=== PATIENT | male | born 1975 | race Caucasian/White ===

== ENCOUNTER → 2020-02-09 17:06 | Outpatient (BNVA) | payer OTHER, SELFPAY | PROVIDERS: Family Provider Nurse Practitioner Family; PCP Nurse Practitioner Family; Visit Provider Nurse Practitioner | DX: I10 Essential (primary) hypertension (principal); Z98.890 Other specified postprocedural states; H02.826 Cysts of left eye, unspecified eyelid | CPT/HCPCS: 80053; 80061; 85025 ==

== ENCOUNTER 2020-03-22 07:17 | Emergency (ER) | payer OTHER, SELFPAY ==
--- NOTE | 2020-03-22 07:19 | ECG_ITS ---
[facility] Test Date: 2020-03-22 Pat Name: Allan Faust Department: Room: Gender: Male Raftsman: : 1975 Requested By: Gladys Quiñonez Order Number: [id number] Olga MD: Shira Caicedo M.D. Measurements Intervals Hasty Rate: 62 P: 32 OK: 139 QRS: -5 QRSD: 101 T: 2 QT: 421 QTc: 430 Interpretive Statements SINUS RHYTHM MODERATE VOLTAGE CRITERIA FOR LVH, CONSIDER NORMAL VARIANT No previous ECG available for comparison Electronically Signed On 03-23-2020 17:11:41 CDT by Shira Caicedo M.D. [email or web address] hardin memorial [email or web address].[employer]/store/NU/[id number] f
--- NOTE | 2020-03-22 07:19 | XR_ITS ---
WS: [id number] PORTABLE CHEST HISTORY: chest pain COMPARISON: 09/30/2018 Decreased lung volumes. Areas of atelectasis in the RIGHT lower and RIGHT upper lung. No pleural effu richi or pneumothorax. Cardiac size: Normal. Mediastinum/Aorta: Normal mediastinum. No osseous abnormality seen. XR/XR chest 1V portable [id number] IMPRESSION: Poor inspiration with mild atelectasis in the RIGHT upper and RIGHT lower lungs .
--- NOTE | 2020-03-22 07:21 | W.ED.CHESTPA ---
Documented by User: RHONDA Oconnell 03/22/20 10:19 HPI - Chest Pain General: Chief Complaint: Chest Pain Stated Complaint: CP/SOB Time Seen by Provider: 03/22/20 07:21 Source: patient Mode of arrival: ambulatory Limitations: no limitations History of Present Illness: HPI narrative: Patient is a nice 44-year-old male who presents to ED today with a complaint of chest pain that began around 4 AM this morning. Patient tells me he had gotten up and had taken his morning medications and started to eat breakfast and states on one of the bites of food, when he swallowed, he immediately developed substernal chest pain that brought me to my knees . Patient states he then had a few episodes of vomiting. He states since that time he is continued to have pain. He has had to drink water but again states when he swallows he has pain in his chest. Patient has no known cardiac disease. He thinks he might have had an echocardiogram last year but is not sure. PMH is significant for hypertension and obesity. Patient states that his pain is currently rated at a 7 out of 10 and states he feels restricted anytime he tries to take a deep breath. MD complaint: chest pain Onset (ago): hour(s) Timing of current episode: constant Prior episodes: No Onset: other (during eating) Pain location: substernal Relieving factors: nothing Exacerbating factors: other (swallowing, deep inhalation) Associated symptoms: Deny abdominal pain, dyspnea, fever(s), nausea, palpitations, syncope or vomiting Review of Systems Const: Denies: fever(s) or chills Eyes: Denies: change in vision or blurry vision ENMT: Reports: odynophagia (pain in chest with swallowing) Card: Reports: chest pain; Denies: palpitations, irregular heart rhythm, edema, swelling of feet/ankles, lightheadedness, syncope, pre-syncope, dyspnea on exertion or orthopnea Resp: Denies: dyspnea, productive cough, non-productive cough, pain on inspiration, change in phlegm color, hemoptysis or chest congestion GI: Denies: abdominal pain, nausea, vomiting, heartburn or diarrhea : Denies: difficulty urinating or dysuria Musc: Denies: neck pain, back pain or joint pain Skin/Breast: Denies: rash Neuro: Denies: headache(s), numbness in extremities, weakness in extremities or sensory changes PFSH ED PFSH: Medical History (Updated 03/30/20 @ 00:00 by ) Hypertension Left ventricular hypertrophy Obesity Obstructive sleep apnea with CPAP Surgical History (Updated 02/09/20 @ 17:07 by MELANIE Danielle) History of foot surgery 1986 right foot Family History Father Heart disease Social History Smoking and tobacco status: current every day smoker smokeless tobacco Smokeless tobacco user: snuff Second hand smoke exposure: No Smoking risk assessment/counseling performed?: No Alcohol intake: current Alcohol intake frequency: other Desire information about substance/drug rehabilitation?: No Counseling given: No Adopted: No Caregiver/support person: No Lives independently: Yes Household members: spouse Housing: House Marital status: Number of children: 3 Number of grandchildren: 0 service: Yes Current occupational status: employed History of recent travel: No Physical Exam Const: COMMON NORMALS: no acute distress, patient oriented x3, no limitations and alert NUTRITIONAL APPEARANCE: obese HENMT: COMMON NORMALS: normocephalic and atraumatic HEAD & SCALP: normocephalic and atraumatic Neck/C-Spine: GENERAL: Yes normal visual inspection Chest: COMMONS NORMALS: normal inspection of the chest and normal palpation of entire chest wall Resp: COMMON NORMALS: normal respiratory effort and clear to auscultation bilaterally AUSCULTATION: clear to auscultation bilaterally Cardio: COMMON NORMALS: regular rate and regular rhythm RATE: regular rate RHYTHM: regular rhythm GI: COMMON NORMALS: Normal to inspection, nondistended, normoactive bowel sounds present, Soft to palpation, non-tender, No hepatosplenomegaly present and no masses PALPATION: Yes Soft to palpation and Yes No hepatosplenomegaly present Back/Pelvis: COMMON NORMALS: thoracic and lumbar spine normal to inspection, no thoracic nor lumbar tenderness and thoraco-lumbar ROM normal Neuro: COMMON NORMALS: patient oriented x3 SENSORIUM/ORIENTATION: Yes alert Skin: COMMON NORMALS: no rashes or lesions noted GENERAL SKIN EXAM: no rashes or lesions noted Course Vital Signs: Vital signs: Vital Signs Temperature 98.4 F 03/22/20 07:22 Pulse Rate 61 03/22/20 10:17 Respiratory Rate 18 03/22/20 10:17 Blood Pressure 156/111 03/22/20 10:17 Pulse Oximetry 98 03/22/20 10:17 MDM - Chest Pain MDM Narrative: Medical decision making narrative: Patient is a nice gentleman that presented to ED today with a complaint of substernal chest pain that began after eating/swallowing. Patient had a negative initial troponin with a negative delta troponin. Initial and repeat EKGs without ischemic changes. His CXR shows no acute abnormality/no evidence for esophageal perforation. Remainder of labs and work-up here are normal. Patient was initially treated with nitroglycerin which did not produce any alleviation of patient's symptoms. He was shortly after treated with a GI cocktail which almost immediately decreased patient's pain substantially. Recommend patient follow-up with primary care in the next 3 to 5 days for reevaluation. Lab Data: Labs: Lab Results 03/22/20 03/22/20 03/22/20 Range/Units 07:29 07:29 07:29 WBC 13.1 H (4.0-10.0) 10^3/ uL RBC 5.18 (4.1-5.3) 10^6/u L Hgb 15.0 (11.7-16.6) g/dL Hct 45.6 (42.0-52.0) % MCV 88.0 (80-94) fL MCH 29.0 (28.0-34.0) pg MCHC 32.9 (30.0-36.0) g/dL RDW 12.5 (12.1-15.1) % Plt Count 241 (130-400) 10^3/c mm MPV 9.7 (7.4-10.4) fL Neut % (Auto) 80.5 % Lymph % (Auto) 11.1 % [place] % (Auto) 5.3 % Eos % (Auto) 2.3 % Baso % (Auto) 0.4 % Neut # (Auto) 10.6 H (1.8-7.7) 10^3/u L Lymph # (Auto) 1.5 (0.8-4.8) 10^3/u L [place] # (Auto) 0.7 (0.2-0.9) 10^3/u L Eos # (Auto) 0.3 (0.0-0.8) 10^3/u L Baso # (Auto) 0.1 (0.0-0.1) 10^3/u L Nucleated RBC % (a uto) 0 % Nucleated RBCs # 0.0 /100WBC Sodium 138 (136-145) mmol/L Potassium 4.3 (3.5-5.1) mmol/L Chloride 102 (98-107) mmol/L Carbon Dioxide 27 (22-29) mmol/L Anion Gap 13.3 (5-19) BUN 10 (6-20) mg/dL Creatinine 1.1 (0.7-1.2) mg/dL GFR Calculation 72.1 L (90-130) mL/min Glucose 112 (65-115) mg/dL Calculated Osmolal ity 283 L (285-295) mOsm/k g Calcium 9.7 (8.5-10.5) mg/dL Total Bilirubin 0.4 (0.15-1.2) mg/dL AST 25 (0-40) U/L ALT 26 (0-41) U/L Alkaline Phosphata se 58 (40-130) IU/L Troponin T Baselin e 11 (0-15) ng/L Troponin T [address] [place] (0-15) ng/L Delta Troponin T (0-10) ABS# Total Protein 7.2 (6.6-8.7) g/dL Albumin 4.5 (3.5-5.2) g/dL Globulin 2.7 (1.3-4.6) g/dL 03/22/20 Range/Units 09:30 WBC (4.0-10.0) 10^3/ uL RBC (4.1-5.3) 10^6/u L Hgb (11.7-16.6) g/dL Hct (42.0-52.0) % MCV (80-94) fL MCH (28.0-34.0) pg MCHC (30.0-36.0) g/dL RDW (12.1-15.1) % Plt Count (130-400) 10^3/c mm MPV (7.4-10.4) fL Neut % (Auto) % Lymph % (Auto) % [place] % (Auto) % Eos % (Auto) % Baso % (Auto) % Neut # (Auto) (1.8-7.7) 10^3/u L Lymph # (Auto) (0.8-4.8) 10^3/u L [place] # (Auto) (0.2-0.9) 10^3/u L Eos # (Auto) (0.0-0.8) 10^3/u L Baso # (Auto) (0.0-0.1) 10^3/u L Nucleated RBC % (a uto) % Nucleated RBCs # /100WBC Sodium (136-145) mmol/L Potassium (3.5-5.1) mmol/L Chloride (98-107) mmol/L Carbon Dioxide (22-29) mmol/L Anion Gap (5-19) BUN (6-20) mg/dL Creatinine (0.7-1.2) mg/dL GFR Calculation (90-130) mL/min Glucose (65-115) mg/dL Calculated Osmolal ity (285-295) mOsm/k g Calcium (8.5-10.5) mg/dL Total Bilirubin (0.15-1.2) mg/dL AST (0-40) U/L ALT (0-41) U/L Alkaline Phosphata se (40-130) IU/L Troponin T Baselin e (0-15) ng/L Troponin T [address] [place] 8.00 (0-15) ng/L Delta Troponin T -3.00 L (0-10) ABS# Total Protein (6.6-8.7) g/dL Albumin (3.5-5.2) g/dL Globulin (1.3-4.6) g/dL Imaging Data^: CXR: Radiologist's impression: [address] [address] XRay Report Signed Patient: Allan Faust Unit #: [id number] : 1975 Age/Sex: 44 / M ADM Date: 03/22/20 Loc: ER Room/Bed: Attending Dr: Ordering Provider/Ordering MD: Gladys Quiñonez Date of Service: 03/22/20 Procedure(s): XR chest 1V portable [id number] Accession Number(s): [id number] Report Number: [id number] WS: [id number] PORTABLE CHEST HISTORY: chest pain COMPARISON: 09/30/2018 Decreased lung volumes. Areas of atelectasis in the RIGHT lower and RIGHT upper lung. No pleural effusion or pneumothorax. Cardiac size: Normal. Mediastinum/Aorta: Normal mediastinum. No osseous abnormality seen. XR/XR chest 1V portable [id number] IMPRESSION: Poor inspiration with mild atelectasis in the RIGHT upper and RIGHT lower lungs. Dictated By: Rubina Brewer DO Signed By: Rubina Brewer DO Signed Date/Time: 03/22/20806 DD/ 4 Discharge Plan Discharge Patient Disposition: Home, Self-Care Clinical Impression: Pain of esophagus Condition: Stable Prescriptions: New Lidocaine Viscous 2 % solution 10 ml PO Q6H Qty: 100 RF: 0 No Action hydrochlorothiazide 50 mg tablet 50 mg PO DAILY Qty: 90 RF: 2 valsartan 320 mg tablet 320 mg PO DAILY Qty: 90 RF: 2 amlodipine 5 mg tablet 5 mg PO DAILY Qty: 90 RF: 2 potassium gluconate 595 mg (99 mg) Tablet 1,190 mg PO DAILY RF: 0 Discharge Orders: Discharge Order (Routine); Ordered 03/22/20 Ordered By: Gladys Quiñonez Referrals: Shauna Cobian FNP-C [Primary Care Provider] - Activity Restrictions/Additional Instructions: May also take Maalox along with the lidocaine to help with discomfort. Please follow-up with primary care this week or early next week for reevaluation. Return to the emergency department for worsening chest pain, difficulty breathing, worsening painful swallowing, pain up into your neck, or any other concerns you may have. Discharge Date/Time: 03/22/20 10:17 Coding Level of Care Code ED Business Control Specialist for Chg Fwd Exam Comprehensive Documented by User: Mihai Rodriguez DO 04/01/20 06:09 HPI - Chest Pain General: Chief Complaint: Chest Pain Stated Complaint: CP/SOB Time Seen by Provider: 03/22/20 07:21 [facility] ED PFSH: Medical History (Updated 03/30/20 @ 00:00 by ) Hypertension Left ventricular hypertrophy Obesity Obstructive sleep apnea with CPAP Surgical History (Updated 02/09/20 @ 17:07 by MELANIE Danielle) History of foot surgery 1986 right foot Family History Father Heart disease Social History Smoking and tobacco status: current every day smoker smokeless tobacco Smokeless tobacco user: snuff Second hand smoke exposure: No Smoking risk assessment/counseling performed?: No Alcohol intake: current Alcohol intake frequency: other Desire information about substance/drug rehabilitation?: No Counseling given: No Adopted: No Caregiver/support person: No Lives independently: Yes Household members: spouse Housing: House Marital status: Number of children: 3 Number of grandchildren: 0 service: Yes Current occupational status: employed History of recent travel: No Course Vital Signs: Vital signs: Vital Signs Temperature 98.4 F 03/22/20 07:22 Pulse Rate 61 03/22/20 10:17 Respiratory Rate 18 03/22/20 10:17 Blood Pressure 156/111 03/22/20 10:17 Pulse Oximetry 98 03/22/20 10:17 MDM - Chest Pain MDM Narrative: Medical decision making narrative: Reviewed case with midlevel agree with assessment and plan patient to return to the ER if has any further problems. Otherwise follow-up with primary care doctor. Lab Data: Labs: Lab Results 03/22/20 03/22/20 03/22/20 Range/Units 07:29 07:29 07:29 WBC 13.1 H (4.0-10.0) 10^3/ uL RBC 5.18 (4.1-5.3) 10^6/u L Hgb 15.0 (11.7-16.6) g/dL Hct 45.6 (42.0-52.0) % MCV 88.0 (80-94) fL MCH 29.0 (28.0-34.0) pg MCHC 32.9 (30.0-36.0) g/dL RDW 12.5 (12.1-15.1) % Plt Count 241 (130-400) 10^3/c mm MPV 9.7 (7.4-10.4) fL Neut % (Auto) 80.5 % Lymph % (Auto) 11.1 % [place] % (Auto) 5.3 % Eos % (Auto) 2.3 % Baso % (Auto) 0.4 % Neut # (Auto) 10.6 H (1.8-7.7) 10^3/u L Lymph # (Auto) 1.5 (0.8-4.8) 10^3/u L [place] # (Auto) 0.7 (0.2-0.9) 10^3/u L Eos # (Auto) 0.3 (0.0-0.8) 10^3/u L Baso # (Auto) 0.1 (0.0-0.1) 10^3/u L Nucleated RBC % (a uto) 0 % Nucleated RBCs # 0.0 /100WBC Sodium 138 (136-145) mmol/L Potassium 4.3 (3.5-5.1) mmol/L Chloride 102 (98-107) mmol/L Carbon Dioxide 27 (22-29) mmol/L Anion Gap 13.3 (5-19) BUN 10 (6-20) mg/dL Creatinine 1.1 (0.7-1.2) mg/dL GFR Calculation 72.1 L (90-130) mL/min Glucose 112 (65-115) mg/dL Calculated Osmolal ity 283 L (285-295) mOsm/k g Calcium 9.7 (8.5-10.5) mg/dL Total Bilirubin 0.4 (0.15-1.2) mg/dL AST 25 (0-40) U/L ALT 26 (0-41) U/L Alkaline Phosphata se 58 (40-130) IU/L Troponin T Baselin e 11 (0-15) ng/L Troponin T [address] [place] (0-15) ng/L Delta Troponin T (0-10) ABS# Total Protein 7.2 (6.6-8.7) g/dL Albumin 4.5 (3.5-5.2) g/dL Globulin 2.7 (1.3-4.6) g/dL 03/22/20 Range/Units 09:30 WBC (4.0-10.0) 10^3/ uL RBC (4.1-5.3) 10^6/u L Hgb (11.7-16.6) g/dL Hct (42.0-52.0) % MCV (80-94) fL MCH (28.0-34.0) pg MCHC (30.0-36.0) g/dL RDW (12.1-15.1) % Plt Count (130-400) 10^3/c mm MPV (7.4-10.4) fL Neut % (Auto) % Lymph % (Auto) % [place] % (Auto) % Eos % (Auto) % Baso % (Auto) % Neut # (Auto) (1.8-7.7) 10^3/u L Lymph # (Auto) (0.8-4.8) 10^3/u L [place] # (Auto) (0.2-0.9) 10^3/u L Eos # (Auto) (0.0-0.8) 10^3/u L Baso # (Auto) (0.0-0.1) 10^3/u L Nucleated RBC % (a uto) % Nucleated RBCs # /100WBC Sodium (136-145) mmol/L Potassium (3.5-5.1) mmol/L Chloride (98-107) mmol/L Carbon Dioxide (22-29) mmol/L Anion Gap (5-19) BUN (6-20) mg/dL Creatinine (0.7-1.2) mg/dL GFR Calculation (90-130) mL/min Glucose (65-115) mg/dL Calculated Osmolal ity (285-295) mOsm/k g Calcium (8.5-10.5) mg/dL Total Bilirubin (0.15-1.2) mg/dL AST (0-40) U/L ALT (0-41) U/L Alkaline Phosphata se (40-130) IU/L Troponin T Baselin e (0-15) ng/L Troponin T [address] [place] 8.00 (0-15) ng/L Delta Troponin T -3.00 L (0-10) ABS# Total Protein (6.6-8.7) g/dL Albumin (3.5-5.2) g/dL Globulin (1.3-4.6) g/dL Discharge Plan Discharge Patient Disposition: Home, Self-Care Clinical Impression: Pain of esophagus Condition: Stable Prescriptions: New Lidocaine Viscous 2 % solution 10 ml PO Q6H Qty: 100 RF: 0 No Action hydrochlorothiazide 50 mg tablet 50 mg PO DAILY Qty: 90 RF: 2 valsartan 320 mg tablet 320 mg PO DAILY Qty: 90 RF: 2 amlodipine 5 mg tablet 5 mg PO DAILY Qty: 90 RF: 2 potassium gluconate 595 mg (99 mg) Tablet 1,190 mg PO DAILY RF: 0 Discharge Orders: Discharge Order (Routine); Ordered 03/22/20 Ordered By: Gladys Quiñonez Referrals: Shauna Cobian FNP-C [Primary Care Provider] - Activity Restrictions/Additional Instructions: May also take Maalox along with the lidocaine to help with discomfort. Please follow-up with primary care this week or early next week for reevaluation. Return to the emergency department for worsening chest pain, difficulty breathing, worsening painful swallowing, pain up into your neck, or any other concerns you may have. Discharge Date/Time: 03/22/20 10:17 Coding Level of Care Code ED Business Control Specialist for Fabiola Fwrichard Exam Comprehensive
[2020-03-22 07:22] VITALS: BP 180/119; PULSE 63; RESP 18; TEMP 36.9; O2SAT 97; BMI 42.0
[2020-03-22 07:29] VITALS: BP 167/108; PULSE 65; RESP 23; O2SAT 96
[2020-03-22 07:36] LABS: Basophils # 0.1 10^3/uL (0.0-0.1); Basophils % 0.4 %; Eosinophils # 0.3 10^3/uL (0.0-0.8); Eosinophils % 2.3 %; Hematocrit 45.6 % (42.0-52.0); Lymphocytes # 1.5 10^3/uL (0.8-4.8); Lymphocytes % 11.1 %; Mean Corpuscular HGB Conc 32.9 g/dL (30.0-36.0); Mean Platelet Volume 9.7 fL (7.4-10.4); Monocytes # 0.7 10^3/uL (0.2-0.9); Monocytes % 5.3 %; Neutrophils # 10.6 10^3/uL (1.8-7.7); Neutrophils % 80.5 %; Nucleated Red Blood Cells % 0 %; Platelet Count 241 10^3/cmm (130-400); Red Blood Count 5.18 10^6/uL (4.1-5.3); Red Cell Distribution Width 12.5 % (12.1-15.1); White Blood Count 13.1 10^3/uL (4.0-10.0)
[2020-03-22 07:49] LABS: Troponin(5th) Baseline 11 ng/L (0-15)
[2020-03-22 08:04] LABS: Alanine Aminotransferase 26 U/L (0-41); Albumin Level 4.5 g/dL (3.5-5.2); Alkaline Phosphatase 58 IU/L (40-130); Anion Gap 13.3 (5-19); Blood Urea Nitrogen 10 mg/dL (6-20); Calcium 9.7 mg/dL (8.5-10.5); Carbon Dioxide 27 mmol/L (22-29); Chloride 102 mmol/L (98-107); Globulin 2.7 g/dL (1.3-4.6); Glomerular Filtration Rate 72.1 mL/min (90-130); Glucose 112 mg/dL (65-115); Osmolality Calculated 283 mOsm/kg (285-295); Potassium 4.3 mmol/L (3.5-5.1); Sodium 138 mmol/L (136-145); Total Bilirubin 0.4 mg/dL (0.15-1.2); Total Protein 7.2 g/dL (6.6-8.7)
[2020-03-22] MEDS: nitroglycerin 0.4 mg sublingual Tablet SUBLINGUAL ×2 (08:25→08:42)
[2020-03-22 08:27] VITALS: BP 150/100; PULSE 53; RESP 19; O2SAT 97
[2020-03-22 08:42] VITALS: BP 130/79; PULSE 59; RESP 19; O2SAT 96
[2020-03-22 08:45] LABS: Aspartate Amino Transferase 25 U/L (0-40)
[2020-03-22] MEDS: lidocaine 2% viscous 15 ML, aluminum-mag hydrox-simethicon 30 ML, sucralfate oral liq 1 GM PO (08:54)
--- NOTE | 2020-03-22 08:57 | PC.NURSE ---
Patient drank GI Cocktail and reports pain with swallowing.
[2020-03-22 09:14] VITALS: BP 139/77; PULSE 53; RESP 17; O2SAT 98
--- NOTE | 2020-03-22 09:14 | PC.NURSE ---
Patient reports that his pain is much better. Pain is a 4/10 and a dull ache.
--- NOTE | 2020-03-22 09:19 | ECG_ITS ---
[facility] ED Test Date: 2020-03-22 Pat Name: Allan Faust Department: Room: Gender: Male Product Coordinator: : 1975 Requested By: Gladys Quiñonez Order Number: [id number] Espinoza MD: Shira Caicedo M.D. Measurements Intervals [place] Rate: 51 P: 57 PA: 153 QRS: 16 QRSD: 101 T: 22 QT: 436 QTc: 403 Interpretive Statements SINUS BRADYCARDIA Compared to ECG 03/22/2020 07:33:45 Sinus rhythm no longer present Electronically Signed On 03-23-2020 17:24:18 CDT by Shira Caicedo M.D. [id number] f
[2020-03-22 10:17] VITALS: BP 156/111; PULSE 61; RESP 18; O2SAT 98
== END 2020-03-22 10:17 | disposition home or self-care (01) ==
PROVIDERS: Emergency Provider Physician Assistant; Family Provider Nurse Practitioner Family; PCP Nurse Practitioner Family
DX: R07.0 Pain in throat (principal); I10 Essential (primary) hypertension; F17.210 Nicotine dependence, cigarettes, uncomplicated
CPT/HCPCS: 12345; 36415; 71045; 80053; 84484; 85025; 93005; 99283

== ENCOUNTER → 2021-05-09 08:15 | Outpatient (BNVA) | payer OTHER, SELFPAY | PROVIDERS: Family Provider Nurse Practitioner Family; PCP Nurse Practitioner Family; Visit Provider Internal Medicine Cardiovascular Disease | DX: E66.9 Obesity, unspecified (principal); G47.33 Obstructive sleep apnea (adult) (pediatric); I10 Essential (primary) hypertension | CPT/HCPCS: 80053; 80061; 85025 ==

== ENCOUNTER 2022-03-09 10:40 | Emergency (ER) | payer OTHER, SELFPAY ==
[2022-03-09 10:46] VITALS: BP 172/106; PULSE 83; RESP 15; TEMP 36.4; O2SAT 94; BMI 42.0
--- NOTE | 2022-03-09 10:55 | XRR_ITS ---
PROCEDURE INFORMATION: Exam: XR Right Hand Exam date and time: 03/09/2022 11:05 AM Age: 46 years old Clinical indication: Injury or trauma; Other: Cut on saw; Laceration; Right; Little finger; Additional info: Hand injury TECHNIQUE: Imaging protocol: Radiologic exam of the Right hand. Views: 3 or more views. COMPARISON: No relevant prior studies available. FINDINGS: Bones/joints: Partial amputation at the distal 5th middle phalanx and base of the distal phalanx with displacement of the distal phalanx. Soft tissues: Wound/laceration at the distal 5th digit. XR/XR hand RT min 3V* [id number] IMPRESSION: Partial amputation of the distal 5th middle phalanx and base of the distal phalanx with displacement of the distal phalanx.
--- NOTE | 2022-03-09 11:03 | W.ED.GENADLT ---
HPI - General Adult General: Chief complaint: Extremity Injury, Upper Stated complaint: cut finger off Time Seen by Provider: 03/09/22 10:55 History of Present Illness: Patient is a 46-year-old male up-to-date with his tetanus with history of hypertension presents emergency room for evaluation of acute finger injury with saw. Patient tells me that he was operating a saw about 10 minutes ago when he suddenly cut the tip of his ring and his pinky finger on the right side. Patient noticed minimal bleeding. Patient denies any other injuries. No nausea/vomiting, fever/chill, chest pain, shortness of breath, abdominal pain, dysuria/hematuria/polyuria, diarrhea/melena/hematochezia. Patient tells me he has 3 tetanus vaccines in his lifetime. Patient has no anticoagulation use. Onset: 10 minutes ago Duration:ongoing Location:home Severity: moderate/severe Associated symptoms: Deny chest pain, dyspnea, nausea, palpitations or vomiting Review of Systems Const: Denies: fever(s) or chills Eyes: Denies: change in vision ENMT: Denies: mouth pain Card: Denies: chest pain or palpitations Resp: Denies: dyspnea or non-productive cough GI: Denies: abdominal pain, nausea, vomiting or diarrhea : Denies: dysuria Musc: Reports: extremity pain (+R near amputation of the pinky finger and laceration over the ring finger) Skin/Breast: Reports: new lesions (+near amputation of the pinky finger) Neuro: Denies: weakness in extremities Psych: Reports: other (Normal mood) Jaime/Lymph: Denies: easy bruising PFSH ED PFSH: Medical History Hypertension Left ventricular hypertrophy Obesity Obstructive sleep apnea with CPAP Surgical History History of foot surgery 1986 right foot Family History Father Heart disease Social History Smoking and tobacco status: never smoked Second hand smoke exposure: No Smoking risk assessment/counseling performed?: No Alcohol intake: current Alcohol intake frequency: other Desire information about substance/drug rehabilitation?: No Counseling given: No Adopted: No Caregiver/support person: No Lives independently: Yes Household members: spouse Housing: House Marital status: Number of children: 3 Number of grandchildren: 0 service: Yes branch: [employer] Current occupational status: employed History of recent travel: No Physical Exam Const: COMMON NORMALS: alert HENMT: COMMON NORMALS: atraumatic HEAD & SCALP: atraumatic MOUTH: moist mucous membranes not abnormal Eye: COMMON NORMALS: EOMs intact bilaterally and conjunctivae normal CONJUNCTIVA: Yes conjunctivae normal Neck/C-Spine: COMMON NORMALS: full ROM and supple Resp: COMMON NORMALS: normal respiratory effort and clear to auscultation bilaterally AUSCULTATION: clear to auscultation bilaterally Cardio: COMMON NORMALS: regular rate RATE: regular rate GI: COMMON NORMALS: Soft to palpation and non-tender PALPATION: Yes Soft to palpation Extremity: COMMON NORMALS: full ROM NARRATIVE EXTREMITY EXAM: +R near amputation of the 5th digit +R distal tip laceration of the 4th digit Neuro: SENSORIUM/ORIENTATION: Yes alert MOTOR EXAM: No Abnormal motor strength present and Other motor observations present (no focal motor deficits) Psych: COMMON NORMALS: speech normal SPEECH: Yes normal speech MOOD & AFFECT: Yes euthymic mood Skin: NARRATIVE SKIN EXAM: +R fifth digit DIP laceration with near amputation of the R finger, patient intact sensation distal to the affected digit +R fourht digit laceration at the finger tip without nailbed involvement measuring 0.5cm Course Vital Signs: Vital signs: Vital Signs Temperature 97.6 F 03/09/22 10:46 Pulse Rate 63 03/09/22 11:32 Respiratory Rate 18 03/09/22 11:32 Blood Pressure 161/108 03/09/22 11:32 Pulse Oximetry 94 03/09/22 10:46 MDM - General Adult Medical Decision Making 38-year-old male who was operating a saw earlier presenting to the emergency room with a laceration of the right fourth digit near amputation of the right fifth finger at the DIP joint. Neurovascular exam is intact on the fifth digit distally. X-rays show bony injuries. Case was discussed with Dr. Lea who recommended transferring to outside facility for hand surgery. Patient is up-to-date with Tdap. Patient received cefazolin. Case was discussed with Dr. Summers who agreed with the transfer to [facility] ER to salvage the finger. Disposition: Transfer to outside hospital Lab Data Radiology Impressions Hand X-Ray 03/09/22 10:55 IMPRESSION: Partial amputation of the distal 5th middle phalanx and base of the distal phalanx with displacement of the distal phalanx. Imaging Data Other Imaging: Radiologist's impression: [address] [place] [address] XRay Report Signed Patient: Allan Faust Unit #: [id number] : 1975 Age/Sex: 46 / M ADM Date: 03/09/22 Loc: ER Room/Bed: Attending Dr: Ordering Provider/Ordering MD: Elvira Orellana MD Date of Service: 03/09/22 Procedure(s): XR hand RT min 3V* [id number] Accession Number(s): [id number] Report Number: [id number] PROCEDURE INFORMATION: Exam: XR Right Hand Exam date and time: 03/09/2022 11:05 AM Age: 46 years old Clinical indication: Injury or trauma; Other: Cut on saw; Laceration; Right; Little finger; Additional info: Hand injury TECHNIQUE: Imaging protocol: Radiologic exam of the Right hand. Views: 3 or more views. COMPARISON: No relevant prior studies available. FINDINGS: Bones/joints: Partial amputation at the distal 5th middle phalanx and base of the distal phalanx with displacement of the distal phalanx. Soft tissues: Wound/laceration at the distal 5th digit. XR/XR hand RT min 3V* [id number] IMPRESSION: Partial amputation of the distal 5th middle phalanx and base of the distal phalanx with displacement of the distal phalanx. ? Dictated By: Feliberto Wolfe DO Signed By: Feliberto Wolfe DO Signed Date/Time: 03/09/22 1201 DD/ 1105 Discharge Plan Discharge Patient Disposition: Transfer to ED Clinical Impression: Partial traumatic amputation of finger through phalanx Condition: Stable Prescriptions: No Action amlodipine 5 mg tablet 5 mg PO DAILY Qty: 90 3RF hydrochlorothiazide 50 mg tablet 50 mg PO DAILY Qty: 90 3RF valsartan 320 mg tablet 320 mg PO DAILY Qty: 90 3RF potassium gluconate 595 mg (99 mg) Tablet 1,190 mg PO DAILY 0RF Referrals: Shauna Cobian FNP-C [Primary Care Provider] - Coding Level of Care Code ED Category Consultant for Chg Fwd Exam Comprehensive
[2022-03-09] MEDS: ceFAZolin 1,000 MG in sodium chloride 0.9% (plus) 50 ML 100 MG IV (11:11)
[2022-03-09 11:32] VITALS: BP 161/108; PULSE 63; RESP 18
--- NOTE | 2022-03-09 11:48 | PC.NURSE ---
RIGHT DIGIT WRAPPED WITH TELFA NON STICK AND KATIANA SULLIVAN
[2022-03-09 12:11] VITALS: RESP 18; O2SAT 98
[2022-03-09] MEDS: fentaNYL 50 mcg/mL INJ 2mL IVP (12:11)
[2022-03-09 12:13] VITALS: PULSE 65; RESP 18; O2SAT 98
== END 2022-03-09 12:15 ==
PROVIDERS: Emergency Provider Emergency Medicine; PCP Nurse Practitioner Family
DX: S68.126A Partial traumatic metacarpophalangeal amputation of right little finger, initial encounter (principal); I10 Essential (primary) hypertension; W27.0XXA Contact with workbench tool, initial encounter
CPT/HCPCS: 73130; 96365; 96375; 99284; J0690; J3010

== ENCOUNTER → 2022-07-04 16:18 | Outpatient (BNVA) | payer OTHER, SELFPAY | PROVIDERS: PCP Nurse Practitioner Family; Visit Provider Nurse Practitioner | DX: I10 Essential (primary) hypertension (principal); E66.01 Morbid (severe) obesity due to excess calories | CPT/HCPCS: 80053; 80061; 84443 ==

== ENCOUNTER → 2023-08-21 16:54 | Outpatient (BNVA) | payer OTHER, SELFPAY | PROVIDERS: PCP Nurse Practitioner Family; Visit Provider Nurse Practitioner | DX: I10 Essential (primary) hypertension (principal); F41.8 Other specified anxiety disorders; E66.01 Morbid (severe) obesity due to excess calories | CPT/HCPCS: 80053; 80061; 84443 ==

== ENCOUNTER → 2024-02-19 08:07 | Outpatient (BNVA) | payer OTHER, SELFPAY | PROVIDERS: PCP Nurse Practitioner Family; Visit Provider Nurse Practitioner Family | DX: I10 Essential (primary) hypertension (principal); Z12.5 Encounter for screening for malignant neoplasm of prostate | CPT/HCPCS: 80053; 80061; G0103 ==

== ENCOUNTER 2024-04-06 22:09 | Emergency (ER) | payer OTHER, SELFPAY ==
[2024-04-06 22:11] VITALS: BP 155/98; PULSE 72; RESP 18; TEMP 36.6; O2SAT 95
--- NOTE | 2024-04-06 22:40 | XRR_ITS ---
PROCEDURE INFORMATION: Exam: XR Right Knee Exam date and time: 04/06/2024 10:43 PM Age: 48 years old Clinical indication: Injury or trauma; Other: Hurt RT knee; Sprain or strain; Patella or knee; Right; Additional info: Pain TECHNIQUE: Imaging protocol: Radiologic exam of the right knee. Views: 3 views. COMPARISON: No relevant prior studies available. FINDINGS: Bones/joints: No acute fractures or subluxations. Chronic appearing irregularity of the tibial tuberosity. No knee joint effusion. Mild degenerative changes with joint space narrowing. Soft tissues: Normal. XR/XR knee RT 3V* [id number] IMPRESSION: No acute fractures.
--- NOTE | 2024-04-06 22:46 | W.ED.EXTPRO ---
HPI - Extremity Problem General: Chief complaint: Extremity Injury, Lower Stated complaint: Right knee pain Time Seen by Provider: 04/06/24 22:11 Source: patient Mode of arrival: ambulatory Limitations: no limitations History of Present Illness: Patient is a 48-year-old male who presents the emergency department complaining of right knee pain beginning on Friday. Patient states he was walking when he had a twisting injury to his right knee, is reporting pain to his anterior knee joint at this time. States he has remained ambulatory though it has became increasingly difficult. No prior surgeries or injuries to this knee. He did not hear a pop or any other concerning sounds with the injury. No swelling reported, no bruising, no other injuries or symptoms to report at this time. He has only been taken Tylenol for his pain. MD Complaint: joint pain Onset (ago): day(s) Pain Consistency: constant Location: right and knee Radiation: none Relieving factors: nothing Exacerbating factors: weight bearing Associated symptoms: Deny chest pain, fever(s) or rash Review of Systems General: Reports: 10 or more systems reviewed and unremarkable except in HPI and below Const: Denies: fever(s) or chills Card: Denies: chest pain Resp: Denies: dyspnea or productive cough GI: Denies: abdominal pain, nausea, vomiting or diarrhea : Denies: flank pain Musc: Reports: joint pain; Denies: neck pain, back pain, extremity pain, extremity swelling, joint swelling, joint redness, joint warmth, limited range of motion or muscle weakness Skin/Breast: Denies: rash Neuro: Reports: difficulty walking; Denies: headache(s), numbness in extremities or weakness in extremities [facility] ED PFSH: Medical History Hyperlipidemia Obesity, morbid, BMI 40.0-49.9 Obesity Left ventricular hypertrophy Hypertension Obstructive sleep apnea with CPAP Surgical History History of foot surgery 1986 right foot Family History Father Heart disease Social History Smoking and tobacco/nicotine status: never used tobacco/nicotine Second hand smoke exposure: No Alcohol intake: current Alcohol intake frequency: other Substance/Drug Use: never Adopted: No Caregiver/support person: No Lives independently: Yes Household members: spouse Housing: House Marital status: Number of children: 3 Number of grandchildren: 0 service: Yes branch: [employer] Current occupational status: employed Do you think of yourself as: Straight/Heterosexual Physical Exam Const: COMMON NORMALS: no acute distress, patient oriented x3, no limitations, healthy appearing, alert and well nourished NUTRITIONAL APPEARANCE: obese morbidly obese HENMT: COMMON NORMALS: normocephalic and atraumatic HEAD & SCALP: normocephalic and atraumatic Neck/C-Spine: COMMON NORMALS: full ROM, supple and no meningeal signs Resp: COMMON NORMALS: normal respiratory effort, No use of accessory muscles and clear to auscultation bilaterally AUSCULTATION: clear to auscultation bilaterally Cardio: COMMON NORMALS: regular rate and regular rhythm RATE: regular rate RHYTHM: regular rhythm Extremity: COMMON NORMALS: full ROM, capillary refill normal, no joint enlargement and no clubbing, cyanosis or edema NARRATIVE EXTREMITY EXAM: Reproducible tenderness to palpation over the right tibial tubercle. No tenderness to palpation of the joint lines. Mild patellar tenderness to palpation, no appreciable joint effusion. No obvious edema or bruising. He does have full range of motion, though there is pain reported with flexion and extension at the right knee. Negative anterior and posterior drawer. Negative Alesha's. Negative varus valgus stress testing. Neuro: COMMON NORMALS: patient oriented x3, moves all extremities, no focal motor deficits and no sensory deficits noted SENSORIUM/ORIENTATION: Yes alert MENINGEAL SIGNS: Yes no meningeal signs Skin: COMMON NORMALS: no rashes or lesions noted GENERAL SKIN EXAM: no rashes or lesions noted Course Vital Signs: Vital signs: Vital Signs Temperature 97.8 F 04/06/24 22:11 Pulse Rate 72 04/06/24 22:11 Respiratory Rate 18 04/06/24 22:11 Blood Pressure 155/98 04/06/24 22:11 Pulse Oximetry 95 04/06/24 22:11 Oxygen Delivery Me thod Room Air 04/06/24 22:11 MDM - Extremity (Nontraumatic) Medical Decision Making Patient presented to the emergency department with right knee pain over the past couple of days after suffering atraumatic injury on Friday. Ambulation had been becoming increasingly difficult. No prior surgeries or injuries. X-ray did not demonstrate any acute findings. On x-ray he had no positive special knee testing, however this could be likely secondary to his body habitus, and his tibial tubercle was noted to be tender to the touch. He will be given crutches and Ronny bandage, and referred to orthopedics for further imaging to rule out any underlying ligament or cartilage damage. I do have moderate suspicion of this due to his body habitus and age, and return precautions are given. He is given Toradol and steroid here in the emergency department. Lab Data Radiology Impressions Knee X-Ray 04/06/24 22:40 IMPRESSION: No acute fractures. All radiology interpretation(s) finalized by discharge Discharge Plan Discharge Patient Disposition: Home Clinical Impression: Right knee sprain Qualifiers: Encounter type: initial encounter Involved ligament of knee: unspecified ligament Qualified Code(s): S83.91XA - Sprain of unspecified site of right knee, initial encounter Condition: Stable Prescriptions: No Action albuterol sulfate [Ventolin HFA] 90 mcg/actuation HFA aerosol inhaler 2 puff inhalation QID PRN (Reason: shortness of breath or wheezing) Qty: 8.5 0RF naltrexone 50 mg tablet 50 mg PO DAILY Qty: 30 2RF metformin 500 mg tablet extended release 24 hr 1,000 mg PO DAILY Qty: 60 2RF bupropion HCl [Wellbutrin XL] 300 mg tablet extended release 24 hr 300 mg PO QAM Qty: 30 2RF furosemide [Lasix] 40 mg tablet 40 mg PO QAM Qty: 30 1RF valsartan 320 mg tablet 320 mg PO DAILY Qty: 90 3RF amlodipine 5 mg tablet 5 mg PO DAILY Qty: 90 3RF potassium gluconate 595 mg (99 mg) Tablet 1,190 mg PO DAILY Discharge Orders: Discharge ED (Routine); Ordered 04/06/24 Ordered By: Arjun Faria Referrals: Shauna Cobian FNP-C [Primary Care Provider] - Discharge Diet: Usual diet Discharge Activity: Increase activity as tolerated Patient Instructions: Knee Sprain (ED) Activity Restrictions/Additional Instructions: Increase weightbearing as tolerated. Please follow-up with orthopedics as discussed for potential further imaging such as an MRI. Ice and elevate the extremity. Tylenol and ibuprofen. Return with any new or worsening symptoms. Coding Level of Care Code ED Powerhouse Attendant for Fabiola Miller
[2024-04-06] MEDS: ketorolac 60 mg/2 mL INJ IM (22:54)
[2024-04-06] MEDS: dexamethasone 10 mg/mL INJ IM (22:55)
[2024-04-06 23:16] VITALS: BP 155/98; PULSE 72; RESP 18; TEMP 36.6; O2SAT 95
--- NOTE | 2024-04-07 08:26 | DCPLANNER ---
messaged ortho for er f/u
== END 2024-04-06 23:19 | disposition home or self-care (01) ==
PROVIDERS: Emergency Provider Physician Assistant; PCP Nurse Practitioner Family
DX: S83.91XA Sprain of unspecified site of right knee, initial encounter (principal); Z79.84 Long term (current) use of oral hypoglycemic drugs; E78.5 Hyperlipidemia, unspecified; I10 Essential (primary) hypertension; X50.1XXA Overexertion from prolonged static or awkward postures, initial encounter
CPT/HCPCS: 73562; 96372; 99284; E0114; J1100; J1885

== ENCOUNTER → 2024-04-13 15:44 | Outpatient (BNVA) | payer OTHER, SELFPAY | PROVIDERS: PCP Nurse Practitioner Family; Referring Provider Physician Assistant; Visit Provider Orthopaedic Surgery | DX: S83.91XA Sprain of unspecified site of right knee, initial encounter (principal); X50.1XXA Overexertion from prolonged static or awkward postures, initial encounter | CPT/HCPCS: 73560; 73565 ==

== ENCOUNTER → 2024-05-03 10:40 | Outpatient (BNVA) | payer OTHER, SELFPAY | PROVIDERS: PCP Nurse Practitioner; Visit Provider Internal Medicine Cardiovascular Disease | DX: R00.1 Bradycardia, unspecified (principal); I51.7 Cardiomegaly | CPT/HCPCS: 93005 ==

== ENCOUNTER 2024-05-31 12:20 | Outpatient (CLI) | payer OTHER, SELFPAY ==
--- NOTE | 2024-05-31 | ECG_ITS ---
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
[2024-05-31 12:42] VITALS: BMI 32.5
[2024-05-31 12:59] VITALS: BP 148/87; PULSE 80
== END 2024-05-31 12:21 | disposition home or self-care (01) ==
PROVIDERS: PCP Nurse Practitioner; Visit Provider Internal Medicine Cardiovascular Disease
DX: Z82.49 Family history of ischemic heart disease and other diseases of the circulatory system (principal); I10 Essential (primary) hypertension; E78.2 Mixed hyperlipidemia; R06.02 Shortness of breath
CPT/HCPCS: 93017

== ENCOUNTER → 2024-06-29 08:43 | Outpatient (BNVA) | payer OTHER, SELFPAY | PROVIDERS: PCP Nurse Practitioner; Visit Provider Internal Medicine Cardiovascular Disease | DX: E78.5 Hyperlipidemia, unspecified (principal); E78.2 Mixed hyperlipidemia | CPT/HCPCS: 80053; 80076 ==

== ENCOUNTER → 2024-07-09 08:25 | Outpatient (BNVA) | payer OTHER, SELFPAY | PROVIDERS: PCP Nurse Practitioner; Visit Provider Internal Medicine Cardiovascular Disease | DX: E78.5 Hyperlipidemia, unspecified (principal) | CPT/HCPCS: 80061 ==

== ENCOUNTER → 2024-11-25 16:37 | Outpatient (BNVA) | payer OTHER, SELFPAY | PROVIDERS: PCP Nurse Practitioner; Visit Provider Nurse Practitioner | DX: F41.8 Other specified anxiety disorders (principal) | CPT/HCPCS: 80053 ==

== ENCOUNTER 2025-01-04 07:00 | Outpatient (CLI) | payer OTHER, SELFPAY ==
[2025-01-04 07:19] VITALS: BMI 46.7
--- NOTE | 2025-01-04 07:22 | ECG_ITS ---
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 Interpretive Statements Lung unchanged pre/post procedure; Intraprocedure shortess of breath; Symptoms resoled by discharge PROCEDURE: At the baseline, the EKG revealed sinus bradycardia with normal ST Ts. The baseline heart was 52 bpm with a blood pressue of 135/92 mm of Hg Lexiscan was infused over a period of 20 seconds. A total of 0.4 milligrams of Lexiscan was infused. The stress phase was continued for a total of 5 minutes. Heart rate at the end of the stress phase was 92 bpm with a blood pressure 135/92 mm of Hg. The EKG at the peak infusion revealed no significant changes. Sestamibi was injected 20 seconds after the Lexiscan infusion. Heart rate at the end of the recovery phase was 71 bpm with a blood pressure of 134/94 mm of Hg. CONCLUSION: 1. No significant EKG changes with the LexiScan infusion 2. No LexiScan induced chest pain or cardiac arrhythmia 3. Normal blood pressure and heart rate response 4. Sestamibi/sestamibi perfusion scan pending; see separate report. Electronically Signed On 01-09-2025 13:19:15 CDT by José Luis Nails M.D. [email or web address] [id number]
--- NOTE | 2025-01-04 07:22 | NMCV_ITS ---
NM rip perf SPECT r/s* [id number] Allan Faust Age: 49 Gender: M : 1975 Exam Date: 01/04/2025 09:23 Ordering Phys: Gladys Dash NP Technologist: JUAN Infante Exam Location: [facility] Indications: CP STRESS TEST Please see separate stress test report in [facility] for full findings IMAGE PROTOCOL Rest/Stress 1 Lexiscan Day Radiopharmaceutical Dose (mCi) Administration Site Administered by Rest: Tc-99m 10.8 IV JUAN Blanc Sestamibi Stress:Tc-99m 33 IV JUAN Blanc Sestamibi Rest: 04-Jan-2025 60 Discovery 630 Stress: 04-Jan-2025 30 Discovery 630 0.4mg Lexiscan. Images obtained in supine and prone position. SPECT RESULTS Technical Quality: Good Raw Data Analysis: Normal Image Corrections: No attenuation or motion correction applied Summed Stress Score: 6 Summed Rest Score: 9 Summed Difference Score: 1 PERFUSION FINDINGS Moderate area of minimal to moderately decreased tracer uptake involving the mid and apical inferior, apical septal, apical lateral and LV apex. No single reversibility was noted in these regions. FUNCTIONAL RESULTS (calculated via Gated SPECT) Stress Image LV EF (%): 57 Stress EDV (mL):178 TID: 0.94 Stress ESV (mL):76 FUNCTIONAL FINDINGS: Segmental wall motion analysis revealing no gross wall motion abnormalities IMPRESSIONS 1. Myocardial perfusion imaging revealing moderate areas of minimal to moderately decreased tracer uptake involving the inferior and apical regions with no significant reversibility, suggesting myocardial scarring versus observation artifacts 2. Normal LV ejection fraction of 57% 3. LV wall motion analysis revealing no gross wall motion abnormalities. 4. Mildly dilated LV cavity with an end-systolic volume of 76 mL No significant coronary ischemia, based on the above findings Dr José Luis Nails MD [facility] (Electronically Signed) Final Date: 04 January 2025 19:34 S
[2025-01-04] MEDS: regadenoson 0.4 Mg/5 ml Syringe IVP (08:51)
[2025-01-04 08:59] VITALS: BP 134/94; PULSE 67
--- NOTE | 2025-01-04 12:00 | USCV_ITS ---
Allan Faust Age: 49 Gender: M : 1975 Exam Date: 01/04/2025 07:39 Ordering Phys: Gladys Dash NP Technologist: [place] [facility] [place]: cp ? ao root size BP: 125 / 70 HR: 65 Rhythm: Sinus Technical Quality: Adequate MEASUREMENTS (Male / Female) Normal Values 2D ECHO LV Diastolic Diameter PLAX 4.5 cm 4.2 - 5.9 / 3.9 - 5.3 cm IVS Diastolic Thickness 1.2 cm 0.6 - 1.0 / 0.6 - 0.9 cm IVS Systolic Thickness 1.5 cm LVPW Diastolic Thickness 1.5 cm 0.6 - 1.0 / 0.6 - 0.9 cm LVPW Systolic Thickness 2.1 cm LVOT Diameter 2.1 cm LV Ejection Fraction 2D Teich 65.4 % LV Ejection Fraction MOD 4C 72.8 % LV Ejection Fraction MOD 2C 74.0 % LV Ejection Fraction 2C AL 73.6 % LA Diameter 4.3 cm RA Systolic Volume 4C AL 68.5 ml RA Systolic Volume 4C MOD 65.0 ml Aorta at Sinotubular Diameter 4.7 cm IVC Diameter 2.3 cm M-MODE LA Ao Ratio MM 1.1 AV Cusp Separation MM 2.1 cm DOPPLER AV Peak Velocity 105.0 cm/s LVOT Peak Velocity 66.0 cm/s AV Area Cont Eq vti 2.4 cm squared AV Area Cont Eq pk 2.1 cm squared MV Peak Velocity 63.0 cm/s MV Area PHT 4.5 cm squared Mitral E to A Ratio 1.1 TV Peak Velocity 217.5 cm/s TR Peak Velocity 264.0 cm/s TR Peak Gradient 27.9 mmHg TV Peak E Velocity 74.0 cm/s FINDINGS Left Ventricle Normal left ventricular size and systolic function, EF 74%.no regional wall motion abnormalities. Right Ventricle Normal right ventricular size and systolic function. Right Atrium The right atrium is normal in size. Left Atrium The left atrium is normal in size. Mitral Valve No gross abnormalities noted Aortic Valve Trace to mild aortic valve regurgitation. Tricuspid Valve Trace tricuspid valve regurgitation. Estimated pulmonary artery peak systolic pressure 31 mmHg Pulmonic Valve Pulmonic valve not well visualized. Pericardium Normal pericardium without effusion. Aorta The aortic root measured 4.6 mm at the level of the sinuses. 4.4 cm at the level of the isthmus and the ascending aorta measured 5.3 cm IVC The inferior vena cava appears normal. CONCLUSIONS Normal left ventricular size and systolic function, EF 74%.no regional wall motion abnormalities. Ascending aortic aneurysm measuring 5.3 cm in diameter. Trace to mild aortic regurgitation. Trace tricuspid valve regurgitation. Estimated pulmonary artery peak systolic pressure 31 mmHg. There is no pericardial effusion. There are no intracardiac masses. Because of the differences in the technical quality, comparison with the previous study is difficult Dr José Luis Nails MD [facility] (Electronically Signed) Final Date: 05 January 2025 13:45 S
== END 2025-01-04 07:01 | disposition home or self-care (01) ==
PROVIDERS: PCP Nurse Practitioner; Visit Provider Nurse Practitioner Family
DX: R06.02 Shortness of breath (principal); I35.1 Nonrheumatic aortic (valve) insufficiency; R93.1 Abnormal findings on diagnostic imaging of heart and coronary circulation
CPT/HCPCS: 36415; 78452; 93017; 93306; 96374; A9500; J2785

== ENCOUNTER 2025-01-20 15:44 | Outpatient (CLI) | payer OTHER, SELFPAY ==
--- NOTE | 2025-01-20 16:00 | CT_ITS ---
WS: [id number] CTA THORACIC AORTA WITH AND WITHOUT IV CONTRAST HISTORY: Ascending aortic aneurysm TECHNIQUE: CTA imaging of the thorax is performed with and without contrast. After noncontrast imaging is performed, CT angiogram is performed during injection of Omnipaque 350; 100 mL IV.. Sagittal and coronal reconstructions, sagittal and coronal MIP imaging is submitted. All CT scans at [facility] use at least one of these dose optimization techniques: automated exposure control; mA and/or kV adjustment per patient size (includes targeted exams where dose is matched to clinical indication); or iterative reconstruction. DLP: 1224.10 mGy.cm COMPARISON: Echocardiogram 01/04/2025 Dilated sinus of Valsalva, sinotubular junction and ascending aorta. Sinus of Valsalva diameter: 5.0 cm. Sinotubular junction 4.5 cm. Ascending thoracic aorta: 4.6 cm. Descending thoracic aorta 2.8 cm. Very minimal plaque within the thoracic aorta. Fusiform dilatation beginning at the level of the sinus of Valsalva to the aortic arch. Descending aorta is normal caliber. No dissection or ulcerated plaque. Normal size pulmonary artery. No filling defects in the pulmonary arteries. No pulmonary mass or pneumonia. No pericardial or pleural effusions. Normal cardiac chambers. No RIGHT heart strain. Scattered coronary artery calcifications. Normal appearance of the great vessels. No pathologically enlarged mediastinal or hilar lymph nodes. Small hiatal hernia. No adrenal mass. Mild increase in thoracic kyphosis. Large bridging osteophytes along the RIGHT lateral mid thoracic spine. CT/CT angio chest [id number] IMPRESSION: 1. Moderately dilated sinus of Valsalva, sinotubular junction and ascending th oracic aorta as described above. 2. Normal descending thoracic aorta. 3. No ulcerated plaque or aortic dissection. 4. Normal size heart.
== END 2025-01-20 15:45 | disposition home or self-care (01) ==
LOC: RAD 15:45
PROVIDERS: PCP Nurse Practitioner; Visit Provider Nurse Practitioner Family
DX: I71.21 Aneurysm of the ascending aorta, without rupture (principal); R93.89 Abnormal findings on diagnostic imaging of other specified body structures; I25.10 Atherosclerotic heart disease of native coronary artery without angina pectoris; K44.9 Diaphragmatic hernia without obstruction or gangrene; M40.294 Other kyphosis, thoracic region; M25.78 Osteophyte, vertebrae
CPT/HCPCS: 71275

== ENCOUNTER → 2025-07-08 08:13 | Outpatient (BNVA) | payer OTHER, SELFPAY | PROVIDERS: PCP Nurse Practitioner; Visit Provider Nurse Practitioner | DX: I10 Essential (primary) hypertension (principal); E78.2 Mixed hyperlipidemia; Z12.5 Encounter for screening for malignant neoplasm of prostate | CPT/HCPCS: 80048; 80061; G0103 ==

== ENCOUNTER 2025-07-25 09:25 | Outpatient (CLI) | payer OTHER, SELFPAY ==
--- NOTE | 2025-07-25 10:00 | CT_ITS ---
WS: [id number] CTA THORACIC AORTA WITH AND WITHOUT CONTRAST HISTORY: ascending aortic aneurysm TECHNIQUE: CTA imaging of the thorax is performed with and without contrast. After noncontrast imaging is performed, CT angiogram is performed during injection of Omnipaque 350; 100 mL IV.. Sagittal and coronal reconstructions, sagittal and coronal MIP imaging is submitted. All CT scans at [facility] use at least one of these dose optimization techniques: automated exposure control; mA and/or kV adjustment per patient size (includes targeted exams where dose is matched to clinical indication); or iterative reconstruction. DLP: 1569.40 mGy.cm COMPARISON: 01/20/2025 Mildly dilated ascending thoracic aorta to 4.6 cm which is similar to the prior study. No change in the sinotubular junction or sinus of Valsalva diameter. Descending thoracic aorta is normal caliber. Minimal plaque through the aortic arch. No ulcerated plaque or dissection. Normal great vessels. Normal size pulmonary artery. Normal size heart. No pericardial or pleural effusions. No mediastinal or hilar adenopathy. Hyperinflated lungs from emphysema. No pulmonary mass, nodule or pneumonia. Suprarenal aorta normal caliber. Incompletely visualized low-attenuation mass in the posteromedial LEFT kidney measures 2.7 cm. There is no obvious enhancement. Hounsfield units are low suggesting this is a cyst. Nonobstructing calcifications in the LEFT renal pelvis. Increase in thoracic kyphosis. Large bridging osteophytes and disc spaces are narrowed in the thoracic spine. CT/CT angio chest [id number] IMPRESSION: 1. Stable dilatation of the ascending thoracic aorta to 4.6 cm. Stable since . 2. Stable dilated sinus of Valsalva and sinotubular junction with no progressi on. 3. No mediastinal or hilar adenopathy. 4. Emphysema. 5. Normal size heart.
[2025-07-25] MEDS: iohexol 350 mg/mL 500 mL Btl (per mL) IV (10:19)
== END 2025-07-25 09:26 | disposition home or self-care (01) ==
LOC: RAD 09:26
PROVIDERS: PCP Nurse Practitioner; Visit Provider Nurse Practitioner Family
DX: I77.810 Thoracic aortic ectasia (principal); J43.9 Emphysema, unspecified; N28.89 Other specified disorders of kidney and ureter; M40.294 Other kyphosis, thoracic region; M25.78 Osteophyte, vertebrae; M51.34 Other intervertebral disc degeneration, thoracic region
CPT/HCPCS: 71275